=== PATIENT | male | born 1975 | race American Indian/Alaskan Native ===

== ENCOUNTER 2016-09-07 19:29 | Emergency (ER) | payer BC ==
--- NOTE | 2016-09-07 20:22 | Cat Scan Report ---
FINAL REPORT PROCEDURE: CT HEAD/BRAIN WO CON TECHNIQUE: Computerized tomography of the head was performed without contrast material. HISTORY: HEADACHE COMPARISON: No prior studies are available for comparison. FINDINGS: Skull and scalp: Normal. Paranasal sinuses: Mild degree mucosal thickening is noted involving bilateral ethmoid sinuses.. Ventricles and subarachnoid spaces: Normal. Cerebrum: No evidence of hemorrhage, acute infarction or mass . Cerebellum and brainstem: No evidence of hemorrhage, acute infarction or mass. Vasculature: Normal. Comments: None. IMPRESSION: No acute intracranial abnormality. Chronic bilateral ethmoid sinusitis
[2016-09-07 20:36] VITALS: BP 128/74
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
== END 2016-09-07 21:44 | disposition home or self-care (01) ==
LOC: ED 19:29
DX: J32.2 Chronic ethmoidal sinusitis (principal); R51 Headache
CPT/HCPCS: 70450; 99283